=== PATIENT | female | born 1970 | race Caucasian/White ===

== ENCOUNTER 2021-12-26 08:39 | Day surgery (SDC) | payer OTHER ==
[2021-12-25 20:03] VITALS: BMI 22.7
[2021-12-26 11:35] VITALS: RESP 16
[2021-12-26 12:03] VITALS: BP 128/68; PULSE 62; TEMP 97
== END 2021-12-26 12:47 | disposition home or self-care (01) ==
LOC: FASU-ENDO 08:39
PROVIDERS: ATTEND Internal Medicine
PROC: 0DBK8ZX Excision of Ascending Colon, Via Natural or Artificial Opening Endoscopic, Diagnostic (ICD-10-PCS; principal; 2021-12-26 10:58)
DX: K64.8 Other hemorrhoids (principal)
CPT/HCPCS: 87426; 88305-TC; C9803-CS; U0003; U0005